=== PATIENT | male | born 1975 | race Caucasian/White ===

== ENCOUNTER 2018-10-26 12:41 | Emergency (ER) | payer OTHER, SELFPAY ==
[2018-10-26] MEDS ORDERED: NORCO 10/325 PO ONE (13:17)
[2018-10-26] MEDS ORDERED: ceFAZolin 2 GM in NACL 0.9% 100 ML IV ONE (13:20)
--- NOTE | 2018-10-26 13:22 | XRay Report ---
LEFT ANKLE, 3 views: History: Swelling, pain. A complex fracture dislocation is identified. An oblique fracture is identified in the distal fibula. A transverse fracture is identified at the base of the medial malleolus. There is 1.5 cm lateral subluxation of the talar dome with respect to the distal tibia. The remainder of the hindfoot is grossly intact. IMPRESSION: Displaced bimalleolar fracture with lateral subluxation of the talus.
[2018-10-26] MEDS ORDERED: DILAUDID IV ONE (13:23)
[2018-10-26] MEDS ORDERED: KETALAR IV ONE (13:45)
[2018-10-26] MEDS ORDERED: DIPRIVAN 10 MG/ML IV ONE ×2 (13:45→13:48)
--- NOTE | 2018-10-26 13:47 | Emergency Department Report ---
Blank Doc - Documentation Documentation: This is a 43-year-old male that presents with right ankle pain, swelling and d eformity status post twisting ankle. Patient stated that he twisted his ankle today. Patient denies any trauma to the area. Patient does have a abrasion to medial right ankle. Normal sensation and range of motion. Neurovascular intact. Patient has been consulted by [facility] and stated patient needs to have a reduction and patient to be admitted for possible surgery tomorrow morning. We'll give patient in Ancef 2 g IV, Dilaudid for pain. Patient was signed out to Dr. Bhatia for further evaluation and treatment.
[2018-10-26] MEDS ORDERED: BOOSTRIX IM ONE (13:48)
[2018-10-26] MEDS ORDERED: KETAMINE HCL IV ONE (13:48)
--- NOTE | 2018-10-26 13:50 | Emergency Department Report ---
ED Lower Extremity HPI - General Chief Complaint: Extremity Injury, Lower Stated Complaint: POSS (L)BROKEN ANKLE Time Seen by Provider: 10/26/18 13:14 Source: patient, RN notes reviewed Mode of arrival: Wheelchair Limitations: Physical Limitation - History of Present Illness Initial Comments: This is a 43-year-old gentleman, not known to this provider previously, who reports no chronic medical conditions, who presents to the ER with ankle pain and swelling, on the left side, after accidental trip and fall. He did not hit his head or neck. He has no other injuries. His pain is sharp and aching, increases with palpation, range of motion, and decreases with rest. It does not radiate anywhere. He does not have any other injuries. He does not think he's had a tetanus vaccination within the past 5 years. MD Complaint: ankle injury, fall -: Sudden, This morning Injury: Ankle: Left Type of Injury: eversion Place: street/outdoors Improves With: rest Worsens With: movement, palpation Context: fall Associated Symptoms: swelling, unable to bear weight - Related Data Previous Rx's Medication Instructions Recorded Last Taken Type Acetaminophen [Tylenol Arthritis] 650 mg PO Q6HR PRN #30 tablet.er 10/26/18 Unknown Rx Ibuprofen [Motrin] 600 mg PO Q8H PRN #30 tablet 10/26/18 Unknown Rx oxyCODONE [Roxicodone] 5 mg PO Q6HR PRN #15 tablet 10/26/18 Unknown Rx Allergies Allergy/AdvReac Type Severity Reaction Status Date / Time No Known Allergies Allergy Verified 10/26/18 12:48 ED Review of Systems ROS: Stated complaint: POSS (L)BROKEN ANKLE Other details as noted in HPI Constitutional: denies: fever Cardiovascular: denies: chest pain Gastrointestinal: denies: abdominal pain Musculoskeletal: joint swelling, arthralgia, myalgia. denies: back pain Skin: other (ecchymosis, abrasion) Neurological: denies: numbness, paresthesias ED Past Medical Hx - Past Medical History Previous Medical History?: No - Surgical History Past Surgical History?: Yes Hx Appendectomy: Yes - Social History Smoking Status: Current Every Day Smoker - Medications Home Medications: Home Medications Medication Instructions Recorded Confirmed Last Taken Type Acetaminophen [Tylenol Arthritis] 650 mg PO Q6HR PRN #30 tablet.er 10/26/18 Unknown Rx Ibuprofen [Motrin] 600 mg PO Q8H PRN #30 tablet 10/26/18 Unknown Rx oxyCODONE [Roxicodone] 5 mg PO Q6HR PRN #15 tablet 10/26/18 Unknown Rx ED Physical Exam - General Limitations: Physical Limitation General appearance: alert, in no apparent distress - Head Head exam: Present: atraumatic, normocephalic - Eye Eye exam: Present: normal appearance, EOMI. Absent: nystagmus - ENT ENT exam: Present: normal exam, normal orophraynx, mucous membranes moist, normal external ear exam - Neck Neck exam: Present: normal inspection, full ROM. Absent: tenderness, meningismus - Respiratory Respiratory exam: Present: normal lung sounds bilaterally. Absent: respiratory distress - Cardiovascular Cardiovascular Exam: Present: regular rate, normal rhythm, normal heart sounds. Absent: bradycardia, tachycardia, irregular rhythm, systolic murmur, diastolic murmur, rubs, gallop - GI/Abdominal GI/Abdominal exam: Present: soft. Absent: distended, tenderness, guarding, rebound, rigid, pulsatile mass - Rectal Rectal exam: Present: deferred - Extremities Exam Extremities exam: Present: tenderness (left ankle is swollen and tender laterally and medially. On the medial side of the left ankle, superficial skin avulsions and abrasions noted. There is no deep laceration. There is no exposed bone.), other (2+ pulses in the bilateral upper, lower extremities. Full range of motion in the bilateral upper extremities and right lower extremity. There is no right lower extremity tenderness. The pelvis is stable.). Absent: normal inspection - Back Exam Back exam: Present: normal inspection, full ROM. Absent: tenderness, CVA tenderness (R), paraspinal tenderness, vertebral tenderness - Neurological Exam Neurological exam: Present: alert, other (Extraocular movements intact. Tongue midline. No facial droop. Facial sensation intact to light touch in the V1, V2, V3 distribution bilaterally. 5 and 5 strength in 4 extremities.. Sensation is intact to light touch in 4 extremities.). Absent: motor sensory deficit - Psychiatric Psychiatric exam: Present: normal affect, normal mood - Skin Skin exam: Present: warm, abrasion, ecchymosis ED Course Vital Signs 10/26/18 10/26/18 10/26/18 12:48 14:00 14:15 Temperature 98.2 F Pulse Rate 120 H 88 89 Pulse Rate [ Intra-Procedure ] Pulse Rate [ Post-Procedure] Pulse Rate [Pre -Procedure] Respiratory 18 16 21 Rate Respiratory Rate [Intra- Procedure] Respiratory Rate [Post- Procedure] Respiratory Rate [Pre- Procedure] Blood Pressure 138/91 134/68 134/68 Blood Pressure [Intra- Procedure] Blood Pressure [Post-Procedure ] Blood Pressure [Pre-Procedure] O2 Sat by Pulse 96 95 96 Oximetry O2 Sat by Pulse Oximetry [ Intra-Procedure ] O2 Sat by Pulse Oximetry [Post -Procedure] O2 Sat by Pulse Oximetry [Pre- Procedure] 10/26/18 10/26/18 10/26/18 14:30 14:35 14:45 Temperature Pulse Rate 87 149 H Pulse Rate [ 149 H Intra-Procedure ] Pulse Rate [ 121 H Post-Procedure] Pulse Rate [Pre 89 -Procedure] Respiratory 19 21 Rate Respiratory 21 Rate [Intra- Procedure] Respiratory 21 Rate [Post- Procedure] Respiratory 21 Rate [Pre- Procedure] Blood Pressure 136/91 129/81 Blood Pressure 129/81 [Intra- Procedure] Blood Pressure 133/86 [Post-Procedure ] Blood Pressure 134/68 [Pre-Procedure] O2 Sat by Pulse 97 94 95 Oximetry O2 Sat by Pulse 95 Oximetry [ Intra-Procedure ] O2 Sat by Pulse 96 Oximetry [Post -Procedure] O2 Sat by Pulse 96 Oximetry [Pre- Procedure] 10/26/18 14:58 Temperature Pulse Rate 103 H Pulse Rate [ Intra-Procedure ] Pulse Rate [ Post-Procedure] Pulse Rate [Pre -Procedure] Respiratory 19 Rate Respiratory Rate [Intra- Procedure] Respiratory Rate [Post- Procedure] Respiratory Rate [Pre- Procedure] Blood Pressure Blood Pressure [Intra- Procedure] Blood Pressure [Post-Procedure ] Blood Pressure [Pre-Procedure] O2 Sat by Pulse Oximetry O2 Sat by Pulse Oximetry [ Intra-Procedure ] O2 Sat by Pulse Oximetry [Post -Procedure] O2 Sat by Pulse Oximetry [Pre- Procedure] - Reevaluation(s) Reevaluation #1: 10/26/18 14:50 Differential diagnosis, including not limited to: Fracture, dislocation, s ubluxation, skin avulsion, abrasion Assessment plan: 43-year-old gentleman with isolated left lower ankle bimalleolar fracture, neurovascularly intact, with skin avulsion and abrasion, superficial, without any evidence of open communication, or open fracture. Patient is afebrile and tachycardia has resolved. He is clinically sober at this time. Extensive discussion had with the patient and patient's father, regarding need for moderate sedation, and closed reduction. They have given verbal and signed informed consent. The patient was evaluated by Dr. Mcmillan, our orthopedist, who agreed that patient could be splinted, reduced, given crutches, made nonweightbearing, and have the patient follow-up as an outpatient for scheduling of open reduction internal fixation for left ankle fracture. Patient is status post attempts at reduction with sedation, and had a left lower extremity [place] splint applied.. Post reduction films pending. Reevaluation #2: 10/26/18 15:15 Postreduction films demonstrated adequate reduction. Patient is neurovascularly intact. Tachycardia improving. We would expect some degree of tachycardia given that he was given IV ketamine for sedation. Patient also given a tetanus vaccination. - Moderate Sedation Indications: fracture/dislocation redu ASA Class: II Mallampati Airway Score: 1 Preparation: catcher plug applied, capnometry used, supplemental O2 applied, suction/airway equipment at bedside, IV secured Ketamine: IV Ketamine Dose: 75 IV Propofol Dose (mgs): 120 Complications: none Patient Tolerated Procedure: well - Orthopedic Fracture Reduction Fracture #1 Consent Obtained: verbal consent, written consent, emergent situation Time Out Performed: Yes Side: left Fracture Reduction Location: tibia, fibula Analgesia: moderate sedation Technique: direct manipulation Post Reduction X-rays Demonstrate: acceptable reduction Post-Reduction Neuro Exam: intact Post-Reduction Vascular Exam: intact Splint Applied: Yes Patient Tolerated Procedure: well - Orthopedic Joint Reduction Joint #1 Consent Obtained: verbal consent, written consent, emergent situation Time Out Performed: Yes Side: left Joint Reduction Location: ankle Analgesia: moderate sedation Technique Used: direct manipulation Post-Reduction Neuro Exam: intact Post-Reduction Vascular Exam: intact Post Reduction X-Ray Obtained: Yes Post Reduction X-Ray Results: reduced Splint Applied: Yes Patient Tolerated Procedure: well - Orthopedic Splinting/Casting Injury #1 Side: left Lower Extremity Injury Location: ankle Lower Extremity Immobilizer: posterior splint (cadilladc splint with lateral support) Other Orthopedic Equipment: crutches ED Lower Extremity MDM - Lab Data Vital Signs 10/26/18 12:48 Temperature 98.2 F Pulse Rate 120 H Respiratory 18 Rate Blood Pressure 138/91 O2 Sat by Pulse 96 Oximetry - Radiology Data Radiology results: report reviewed, image reviewed [facility] [address] [place] [address] XRay Report Signed Patient: ZAINAB HELLER MR#: [id number] : 1975 Acct:[id number] Age/Sex: 43 / M ADM Date: 10/26/18 Loc: ED Attending Dr: Ordering Physician: JOSSIE STEWART Date of Service: 10/26/18 Procedure(s): XR ankle 3+V LT Accession Number(s): [id number] cc: JOSSIE STEWART Fluoro Time In Minutes: LEFT ANKLE, 3 views: History: Swelling, pain. A complex fracture dislocation is identified. An oblique fracture is identified in the distal fibula. A transverse fracture is identified at the base of the medial malleolus. There is 1.5 cm lateral subluxation of the talar dome with respect to the distal tibia. The remainder of the hindfoot is grossly intact. IMPRESSION: Displaced bimalleolar fracture with lateral subluxation of the talus. Transcribed By: TTR Dictated By: RAY BROWNING JR, MD Electronically Authenticated By: RAY BROWNING JR, MD Signed Date/Time: 10/26/18 1316 Critical care attestation.: If time is entered above; I have spent that time in minutes in the direct care of this critically ill patient, excluding procedure time. ED Disposition Clinical Impression: Ankle fracture, left Disposition: DC-01 TO HOME OR SELFCARE Is pt being admited?: No Does the pt Need Aspirin: No Condition: Stable Instructions: Ankle Fracture (ED), Moderate Sedation (ED) Additional Instructions: Remain nonweightbearing on the left foot. Only apply weight to the right foot, and use crutches as directed. Take the pain medication as needed/directed. If taking oxycodone, do not drive, consume alcohol, or make important decisions. Follow up with either of the listed orthopedic physicians within the next 3-5 days for outpatient follow-up. Patient has a left angle fracture, broken in multiple places, and will likely require surgical repair. Please return to the ER right away with new pain, worsened pain, migration of pain, projectile vomiting, change in mental status, confusion, weakness, numbness, redness, pus or streaking. Prescriptions: Acetaminophen [Tylenol Arthritis] 650 mg PO Q6HR PRN #30 tablet.er PRN Reason: Pain Ibuprofen [Motrin] 600 mg PO Q8H PRN #30 tablet PRN Reason: Pain oxyCODONE [Roxicodone] 5 mg PO Q6HR PRN #15 tablet PRN Reason: Pain Referrals: BREA SHERMAN MD [Primary Care Provider] - 3-5 Days MARTIN MCMILLAN MD [Staff Physician] - 3-5 Days [facility] [Provider Group] - 3-5 Days
--- NOTE | 2018-10-26 15:14 | XRay Report ---
LEFT ANKLE, 2 VIEWS History: Status post reduction. Findings: A complex fracture/subluxation at the left ankle has been reduced and is now near anatomic and positioning. There may be minimal lateral subluxation of the talus remaining. A splint has been applied. Impression: Reduction of the left ankle fracture as described.
[2018-10-26 15:46] VITALS: BP 133/86
== END 2018-10-26 16:10 | disposition home or self-care (01) ==
LOC: ED 12:41
DX: S82.842A Displaced bimalleolar fracture of left lower leg, initial encounter for closed fracture (principal); Z90.49 Acquired absence of other specified parts of digestive tract; F17.200 Nicotine dependence, unspecified, uncomplicated; W01.0XXA Fall on same level from slipping, tripping and stumbling without subsequent striking against object, initial encounter; Y93.89 Activity, other specified; Y99.8 Other external cause status; Y92.89 Other specified places as the place of occurrence of the external cause
CPT/HCPCS: 27810; 73600; 73610; 90471; 90715; 99284; J0690; J2704; J1170

== ENCOUNTER 2018-11-26 11:39 | Day surgery (SDC) | payer OTHER, SELFPAY ==
[~2018-11-26 11:39] MED LIST: ANCEF/STERILE WATER 2 GM/20 ML IV NR; NEOSPORIN GU IR ONE
[2018-11-26] MEDS ORDERED: MARCAINE 0.5% INFILTRATI ONE (12:50)
[2018-11-26] MEDS ORDERED: SUBLIMAZE IV ONE (12:56)
[2018-11-26] MEDS ORDERED: NEURONTIN PO NR (13:00)
[2018-11-26] MEDS ORDERED: VERSED IV NR (13:00)
[2018-11-26] MEDS ORDERED: PEPCID PO NR (13:00)
[2018-11-26] MEDS ORDERED: LACTATED RINGERS 1,000 ML IV SCH (13:17)
--- NOTE | 2018-11-26 13:18 | Anesthesia Day of Surgery ---
Anesthesia Day of Surgery - Day of Surgery Patient Examined: Yes Patient H&P Reviewed: Yes Patient is NPO: Yes Beta Blockers: No Cardiac Clearance: No Pulmonary Clearance: No Dayo's Test: N/A
--- NOTE | 2018-11-26 13:20 | Anesthesia Consultation ---
Anesthesia Consult and Med Hx - Airway Anesthetic Teeth Evaluation: Good ROM Head & Neck: Adequate Mental/Hyoid Distance: Adequate Mallampati Class: Class II Intubation Access Assessment: Probably Good - Pulmonary Exam CTA: Yes - Cardiac Exam Cardiac Exam: RRR - Pre-Operative Health Status ASA Pre-Surgery Classification: ASA2 Proposed Anesthetic Plan: General Nerve Block: Pop - Pulmonary Hx Smoking: Yes (2 PER DAY) Hx Asthma: No Hx Respiratory Symptoms: No SOB: No COPD: No Home Oxygen Therapy: No Hx Pneumonia: No Hx Sleep Apnea: No (RADHA PRE SCREEN LOW RISK.) - Cardiovascular System Hx Hypertension: No Hx Coronary Artery Disease: No Hx Heart Attack/AMI: No Hx Angina: No Hx Percutaneous Transluminal Coronary Angioplasty (PTCA): No Hx Cardia Arrhythmia: No Hx Pacemaker: No Hx Internal Defibrillator: No Hx Valvular Heart Disease: No Hx Heart Murmur: No Hx Peripheral Vascular Disease: No - Central Nervous System Hx Neuromuscular Disorder: No Hx Seizures: No CVA: No Hx Back Pain: No Hx Psychiatric Problems: No - Gastrointestinal Hx Ulcer: No Hx Gastroesophageal Reflux Disease: No - Endocrine Hx Renal Disease: No Hx End Stage Renal Disease: No Hx Cirrhosis: No Hx Liver Disease: No Hx Insulin Dependent Diabetes: No Hx Non-Insulin Dependent Diabetes: No Hx Thyroid Disease: No Hx Hypothyroidism: No Hx Hyperthyroidism: No - Hematic Hx Anemia: No Hx Sickle Cell Disease: No - Other Systems Hx Alcohol Use: No Hx Substance Use: No Hx Cancer: No Hx Obesity: No
[2018-11-26] MEDS ORDERED: XYLOCAINE MPF 2% ONE (13:51)
[2018-11-26] MEDS ORDERED: SUBLIMAZE ONE ×2 (13:52→16:52)
[2018-11-26] MEDS ORDERED: DIPRIVAN 10 MG/ML IV ONE (13:52)
[2018-11-26] MEDS ORDERED: MARCAINE 0.25% INFILTRATI ONE (14:07)
[2018-11-26] MEDS ORDERED: ROBINUL ONE (15:40)
--- NOTE | 2018-11-26 16:19 | Procedure Note ---
Date of procedure: 11/26/18 Pre-op diagnosis: displaced left bimalleolar ankle fracture Post-op diagnosis: same Procedure: Open reduction internal fixation left ankle fracture Procedure The patient was brought to the OR after having a femoral nerve block in preop holding. Postop pain management patient was placed on the OR table in supine position following induction and intubation the patient's left lower extremity was prepped and draped in the usual sterile manner. A timeout procedure was done to identify the patient and the correct operative site. The leg was then exsanguinated followed by inflation of the pneumatic tourniquet to 300 mmHg. A lateral incision was made over the distal fibula this is taken down sharply through skin and subcutaneous the fracture site was identified and using gentle manipulation the fracture fragments were reduced into a more anatomic position next a 6-hole one third semitubular plate was applied with screws of appropriate length and AP and lateral view was obtained and showed good reduction at the fracture and placement of the hardware. Next a linear incision was made over the medial malleolus is then taken down sharply through skin and subcutaneous the fracture was identified and again using gentle manipulation I was held in place by way of a bone clamp next 2 small threaded K wires were used followed by placement of our 4.0 50 mm length cannulated screws again AP and lateral views were obtained showing good reduction medially. The wound was copiously irrigated the medial and lateral incisions were closed in a standard routine fashion postoperative dressings were applied as well as a well-padded posterior mold the patient tolerated the procedure there were no complications and he was sent to postanesthesia recovery in stable condition Anesthesia: MAC, regional Surgeon: MARTIN MARRERO High Density Talc Coater Operator: BRADFORD LOPEZ Estimated blood loss: minimal Pathology: none Condition: stable Disposition: PACU
[2018-11-26] MEDS ORDERED: DILAUDID ONE ×2 (16:43→17:36)
[2018-11-26] MEDS ORDERED: PERCOCET 5/325 ONE (17:36)
[2018-11-26] MEDS ORDERED: DILAUDID IV PRN (17:42)
[2018-11-26] MEDS ORDERED: PERCOCET 5/325 PO ONE (17:43)
[2018-11-26 21:01] VITALS: BP 150/92
--- NOTE | 2018-11-27 08:16 | XRay Report ---
LEFT ANKLE, 2 VIEWS History: ORIF of left ankle fracture. Findings: 2 fluoroscopic images of the left ankle were obtained during surgery. The images demonstrate internal fixation of a bimalleolar fracture of the left ankle. Alignment is near anatomic. The joint space is within normal limits. There is mild diffuse soft tissue swelling. Please correlate with the operative report as needed. Impression: Stable appearance of the internally fixated bimalleolar fracture.
== END 2018-11-26 11:40 | disposition home or self-care (01) ==
LOC: OR 11:39
PROVIDERS: ATTEND Orthopaedic Surgery
DX: S82.842A Displaced bimalleolar fracture of left lower leg, initial encounter for closed fracture (principal); F17.210 Nicotine dependence, cigarettes, uncomplicated; Z79.899 Other long term (current) drug therapy; Z90.49 Acquired absence of other specified parts of digestive tract; X58.XXXA Exposure to other specified factors, initial encounter; Y93.89 Activity, other specified; Y92.89 Other specified places as the place of occurrence of the external cause; Y99.8 Other external cause status
CPT/HCPCS: 27814; 64450; 73600; C1713; J0690; J1170; J2250; J2704; J3010; J7120